=== PATIENT | male | born 1980 | race Caucasian/White ===

== ENCOUNTER 2017-08-01 12:28 | Emergency (ER) | payer MEDICAID ==
[~2017-08-01] VITALS: Ht 193 cm; Wt 108.9 kg
[~2017-08-01 12:28] MED LIST: NORPTMEDS CO; WARF5TAB PO
[2017-08-01 15:04] LABS: Prothrombin Time 10.9 sec (9.37-12.3)
[2017-08-01 17:00] VITALS: BP 125/65
== END 2017-08-01 17:04 | disposition home or self-care (01) ==
LOC: ER 12:28
DX: M79.602 Pain in left arm (principal); D68.2 Hereditary deficiency of other clotting factors; F12.10 Cannabis abuse, uncomplicated; Z86.73 Personal history of transient ischemic attack (TIA), and cerebral infarction without residual deficits; Z79.01 Long term (current) use of anticoagulants
CPT/HCPCS: 36415; 85610; 85730; 93005; 93971; 94761

== ENCOUNTER 2021-11-30 09:39 | Emergency (ER) | payer MEDICAID ==
[2021-11-30 10:06] VITALS: BP 141/96
[2021-11-30] MEDS ORDERED: IBU600T PO (14:11)
[2021-11-30] MEDS ORDERED: KETOROLAC TROMETH 60MG/2ML VIAL IM ONE (14:15)
== END 2021-11-30 16:43 | disposition left against medical advice (07) ==
LOC: ER 09:39
DX: M51.36 Other intervertebral disc degeneration, lumbar region (principal); M54.31 Sciatica, right side; Z79.899 Other long term (current) drug therapy
CPT/HCPCS: 72131; 93971